=== PATIENT | male | born 1980 | race Hispanic/Latino ===

== ENCOUNTER 2017-08-02 05:47 | Day surgery (SDC) | payer BC ==
[2017-07-31 10:56] VITALS: BMI 29.7
--- NOTE | 2017-08-01 21:12 | HP ---
HISTORY OF PRESENT ILLNESS: Mr. Humphries is a pleasant 37-year-old man who presents for evaluation of right-sided lower back pain and right lower extremity L5 pain and numbness, this has been present for many years; however, it started to worsen more recently, states that her symptoms a few years ago wh ere he had x-rays and he had had degenerative disk disease and then now more recently at [facility] had an MRI study that shows a very large disk herniation at L5, centered to the right that fits his symp toms rather well. He has treated this with physical therapy and medications with little or no improv ement and is ready to treat this more permanently. PAST MEDICAL HISTORY: Significant for no major medical problems. He has had no surgeries. ALLERGIES: PENICILLIN. PAST SURGICAL HISTORY: Negative. PHYSICAL EXAMINATION: NEUROLOGIC: Patient is alert and oriented x3. Gait is severely antalgic. Lower extremity motor exa m is normal. He has adamantly positive counter straight leg raise. I did not check the left lower e xtremity straight leg raise given the right lower extremity response. ASSESSMENT: Lumbar radiculopathy and disk herniation. PLAN: Dr. Chandra met with the patient, reviewed imaging and ultimately advocated for an L5 diskectomy . He explained to the patient the risks, benefits, and alternatives to the procedure. The patient e xpressed understanding and would like to move forward with surgery as discussed. I do believe the kannan wilkes is mentally competent and capable of making medical decisions for himself and we will move forw bryan with surgery as planned. Naveen Guzmán PA-C, dictating for Dr. Aidan Chandra M.D.
[2017-08-02] MEDS ORDERED: CEFAZOLIN/Water 2 GM/20 ML SYRINGE ONE (08:54)
[2017-08-02] MEDS ORDERED: Bupivacaine/Epinephrine 0.25% 30 ML VIAL ONE (09:00)
[2017-08-02] MEDS ORDERED: Fentanyl 100 MCG/2 ML VIAL ONE (09:01)
[2017-08-02] MEDS ORDERED: Midazolam HCl 2 mg/2 ml Vial ONE ×2 (09:01→09:10)
[2017-08-02] MEDS ORDERED: Levofloxacin 500 mg/D5W 100 ml Premix Bag ONE (09:10)
[2017-08-02] MEDS ORDERED: Clindamycin/D5W 900 mg/50 ml Premix Bag ONE (09:10)
[2017-08-02] MEDS ORDERED: Tamsulosin HCl 0.4 MG CAP ONE (10:38)
--- NOTE | 2017-08-02 10:47 | OP ---
DATE OF PROCEDURE: 08/02/2017 SURGEON: Aidan Chandra M.D. ICER HAND: Naveen Guzmán PA-C INDICATION: Pain. DIAGNOSIS: Lumbar radiculopathy. PROCEDURES: Left L5 hemilaminectomy, medial facetectomy, and decompression. ANESTHESIA: General. TECHNIQUE: The patient was brought into the operating room and placed under general anesthesia. He was flipped from a supine to a prone position on the operating room table. A linear incision was esvin nned over the L5 segment. After prepping and draping and after an appropriate operative pause, the i ncision was created. The soft tissues were swept left of midline. A self-retaining retractor was pl aced in the wound for optimal exposure. After confirming the appropriate level with C-arm fluoroscop y, a high-speed cutting drill bit as well as 2, 3 and 4 mm Kerrisons were used to perform a laminecto my along the inferior aspect of L5 and the superior aspect of S1. We decompressed laterally to encom pass the medial aspect of the facet joint. The descending S1 nerve root was identified and mobilized medially. There was no soft disk fragment present. There was what appeared to be calcified strippe d posterior osteophyte. We performed an adequate decompression around the S1 nerve root such that it was decompressed at the end of the procedure. The wound was then irrigated. Hemostasis was maintai paige throughout. The wound was then closed in anatomic layers and a pressure dressing was applied. T here were no known procedural complications.
[2017-08-02] MEDS ORDERED: Ondansetron HCl/PF 4 MG/2 ML Vial ONE (10:51)
[2017-08-02] MEDS ORDERED: Morphine 4 MG/ML VIAL ONE (11:27)
[2017-08-02] MEDS ORDERED: Promethazine HCl 25 MG/ML VIAL ONE (11:28)
[2017-08-02] MEDS ORDERED: Glycopyrrolate 0.2 MG/ML 5 ML SYRINGE ONE (13:12)
[2017-08-02] MEDS ORDERED: Dexamethasone 20 MG/5 ML VIAL ONE (13:12)
[2017-08-02] MEDS ORDERED: Propofol 200 MG/20 ML VIAL ONE (13:12)
[2017-08-02] MEDS ORDERED: Lidocaine 1% PF 5 ML VIAL ONE (13:12)
== END 2017-08-02 14:20 | disposition home or self-care (01) ==
LOC: SDC 05:47
PROVIDERS: ATTEND Neurological Surgery
PROC: 00NY0ZZ Release Lumbar Spinal Cord, Open Approach (ICD-10-PCS; principal; 2017-08-02)
DX: M51.26 Other intervertebral disc displacement, lumbar region (principal); M54.16 Radiculopathy, lumbar region; Z88.0 Allergy status to penicillin
CPT/HCPCS: 76001; 96374; 96375; J1100; J1956; J2001; J2250; J2270; J2405; J2550; J2704; J3010; J3490